=== PATIENT | male | born 1990 | race Hispanic/Latino ===

== ENCOUNTER 2023-11-24 14:44 | Emergency (ER) | payer OTHER, SELFPAY ==
[2023-11-24 14:50] VITALS: BP 115/82; PULSE 90; RESP 16; TEMP 36.5; O2SAT 99
[2023-11-24 15:13] VITALS: O2SAT 98
[2023-11-24 15:54] LABS: Influenza A QL RT-PCR Negative (Negative); Influenza B QL RT-PCR Negative (Negative); RSV RNA, RT-PCR Negative (Negative); SARS-CoV-2 RNA PCR Negative (Negative)
--- NOTE | 2023-11-24 15:59 | ED.GENADULT ---
HPI - General Adult General Chief complaint: Upper Respiratory Infection Stated complaint: swollen lymphnodes, sinus infection Time Seen by Provider: 11/24/23 14:59 History of Present Illness HPI narrative: 32-year-old male presenting emergency department for evaluation for cellulitis to the nose. Patient also noticed that he has had lymph nodes on his neck bilaterally. Patient denies any coughs colds fevers congestive symptoms. Patient denies any sick contacts. Patient states the lymph nodes started after he had the outbreak on his nose. Related Data Allergies Allergy/AdvReac Type Severity Reaction Status Date / Time No Known Allergies Allergy Verified 11/24/23 14:53 Review of Systems Review of Systems: All systems reviewed & are unremarkable except as noted in HPI and below Exam Narrative: APPEARANCE: Well appearing, no pain, no distress, well-nourished. HEAD: normocephalic, atraumatic. EYES: PERRLA/EOMI, conjunctivae clear. NOSE: Normal no drainage EARS:TMS clear with good light reflex. THROAT: Pharynx clear, no exudate. NECK: Bilateral lymphadenopathy. RESPIRATORY: Airway patent, respirations nonlabored. Clear to auscultation bilaterally, no rales, rhonchi, wheezing. CARDIOVASCULAR: Regular rate and rhythm without murmurs rubs or gallops. ABDOMINAL: Soft, nontender, nondistended, normal bowel sounds MUSCULOSKELETAL: Moves all extremities. Strength/ROM intact, No edema, No calf tenderness. NEURO: Alert. Cranial nerves II through XII intact. Good gait. Good coordination SKIN: Cellulitis at nose Course Course Emergency Course: Patient was started on antibiotics for cellulitis Vital Signs Vital signs: Vital Signs Temperature 97.7 F 11/24/23 14:50 Pulse Rate 90 11/24/23 14:50 Respiratory Rate 16 11/24/23 14:50 Blood Pressure 115/82 11/24/23 14:50 Pulse Oximetry 99 11/24/23 14:50 Oxygen Delivery Room Air 11/24/23 14:50 Temperature 98.7 F 11/24/23 16:19 Pulse Rate 90 11/24/23 14:50 Respiratory Rate 16 11/24/23 14:50 Blood Pressure 115/82 11/24/23 14:50 Pulse Oximetry 98 11/24/23 15:13 Oxygen Delivery Room Air 11/24/23 15:13 Medical Decision Making [facility] Narrative Medical decision making narrative: [age] old male presents emergency department for evaluation for cellulitis to his nose. Patient was started on doxycycline. Patient was encouraged close follow-up with primary care physician. Differential Diagnosis Differential Diagnosis: Abscess, cellulitis, viral etiology, lymphadenopathy Vital Signs Vital Signs: Vital Signs Temperature 97.7 F 11/24/23 14:50 Pulse Rate 90 11/24/23 14:50 Respiratory Rate 16 11/24/23 14:50 Blood Pressure 115/82 11/24/23 14:50 Pulse Oximetry 99 11/24/23 14:50 Oxygen Delivery Room Air 11/24/23 14:50 Temperature 98.7 F 11/24/23 16:19 Pulse Rate 90 11/24/23 14:50 Respiratory Rate 16 11/24/23 14:50 Blood Pressure 115/82 11/24/23 14:50 Pulse Oximetry 98 11/24/23 15:13 Oxygen Delivery Room Air 11/24/23 15:13 Lab Data Lab results reviewed: Yes I reviewed the patient's lab results. Labs: Lab Results 11/24/23 Range/Units 15:12 Influenza A (RT-PCR) Negative (Negative) Influenza B (RT-PCR) Negative (Negative) RSV (RT-PCR) Negative (Negative) SARS-CoV-2 RNA (RT-PCR) Negative (Negative) Discharge Plan Discharge Clinical Impression: Cellulitis Patient Disposition: Home, Self-Care Condition: Stable Instructions: Antibiotic Form, Cellulitis (ED) Additional Instructions: Antibiotic as directed until completed. Have close follow-up with your primary care physician. Prescriptions: New doxycycline monohydrate 100 mg capsule 100 mg PO BID 7 Days Qty: 14 0RF Follow-up/Referrals: UNKNOWN,DOCTOR [Non-Staff] -
[2023-11-24] MEDS: DOXYCYCLINE HYCLATE 100 MG TABLET PO (16:14)
[2023-11-24 16:19] VITALS: TEMP 37.1
== END 2023-11-24 16:22 | disposition home or self-care (01) ==
PROVIDERS: Emergency Provider Emergency Medicine; PCP Family Medicine
DX: J34.0 Abscess, furuncle and carbuncle of nose (principal); Z20.822 Contact with and (suspected) exposure to COVID-19
CPT/HCPCS: 87637; 99283; A9270

== ENCOUNTER 2024-08-21 18:54 | Emergency (ER) | payer OTHER, SELFPAY ==
[2024-08-21 18:58] VITALS: BP 124/82; PULSE 87; RESP 16; TEMP 36.2; O2SAT 99
--- NOTE | 2024-08-21 21:10 | ED.GENADULT ---
HPI - General Adult General Chief complaint: Eye Problems Stated complaint: L. eye redness since Thursday Time Seen by Provider: 08/21/24 20:54 History of Present Illness HPI narrative: Patient 33-year-old gentleman presents emergency department with chief complaint of left eye irritation. Patient reports since Thursday he has had some itching and redness of his sclera. The patient reports that he has had matting of his eyelids and reports that he has had some photophobia and reports that whenever he does not blink his eye becomes blurry. Related Data Allergies Allergy/AdvReac Type Severity Reaction Status Date / Time No Known Allergies Allergy Verified 08/21/24 18:55 Review of Systems Review of Systems: A 10 system review of systems was completed on the patient and is negative except for what is stated in the HPI. Nursing and ancillary documentation was reviewed. Exam Narrative: GENERAL: Well-appearing, well-nourished, and in no acute distress. HEAD: Normocephalic, atraumatic. EYES: PERRLA and EOMI. Left sclera is injected, there is a small abrasion present at the 6 o'clock position intra-ocular pressure is 9 ENT: Nares clear, no rhinorrhea or epistaxis. Mucous membranes moist. NECK: Supple. CHEST: Clear to auscultation. No respiratory distress. HEART: Regular rate and rhythm. No murmur heard. Normal peripheral pulses. ABDOMEN: Soft, nontender, nondistended, normal active bowel sounds. EXTREMITIES: Normal range of motion. No edema. SKIN: Warm, dry, no rash. NEURO: No focal deficits. Alert and oriented x3. PSYCH: Normal mood and affect. Course Vital Signs Vital signs: Vital Signs Temperature 36.2 C L 08/21/24 18:58 Pulse Rate 87 08/21/24 18:58 Respiratory Rate 16 08/21/24 18:58 Blood Pressure 124/82 08/21/24 18:58 Pulse Oximetry 99 08/21/24 18:58 Oxygen Delivery Room Air 08/21/24 18:58 Temperature 36.2 C L 08/21/24 18:58 Pulse Rate 87 08/21/24 18:58 Respiratory Rate 16 08/21/24 18:58 Blood Pressure 124/82 08/21/24 18:58 Pulse Oximetry 99 08/21/24 18:58 Oxygen Delivery Room Air 08/21/24 18:58 Medical Decision Making Vital Signs Vital Signs: Vital Signs Temperature 36.2 C L 08/21/24 18:58 Pulse Rate 87 08/21/24 18:58 Respiratory Rate 16 08/21/24 18:58 Blood Pressure 124/82 08/21/24 18:58 Pulse Oximetry 99 08/21/24 18:58 Oxygen Delivery Room Air 08/21/24 18:58 Temperature 36.2 C L 08/21/24 18:58 Pulse Rate 87 08/21/24 18:58 Respiratory Rate 16 08/21/24 18:58 Blood Pressure 124/82 08/21/24 18:58 Pulse Oximetry 99 08/21/24 18:58 Oxygen Delivery Room Air 08/21/24 18:58 Discharge Plan Discharge Clinical Impression: Corneal abrasion Patient Disposition: Home Condition: Stable Instructions: Antibiotic Form, Corneal Abrasion (ED) Additional Instructions: Please follow-up with your direct support professional in the next 24-48 hours. If you have worsening symptoms please return to the emergency department Patient Language: [place] Prescriptions: New moxifloxacin [Vigamox] 0.5 % drops 1 drp EACH EYE TID 7 Days Qty: 3 0RF No Action doxycycline monohydrate 100 mg capsule 100 mg PO BID 7 Days Qty: 14 0RF Follow-up/Referrals: [facility] [place] [Outside] Alondra,Ellen Brower MD [Primary Care Provider] - Time of Disposition: 21:16
[2024-08-21] MEDS: ERYTHROMYCIN OPHTH OINTMENT 1 GM TUBE 1 APPLIC LEFT EYE (21:49)
== END 2024-08-21 22:07 | disposition home or self-care (01) ==
PROVIDERS: Emergency Provider Emergency Medicine; PCP Family Medicine
DX: S05.02XA Injury of conjunctiva and corneal abrasion without foreign body, left eye, initial encounter (principal); X58.XXXA Exposure to other specified factors, initial encounter
CPT/HCPCS: 99283; A9270